=== PATIENT | male | born 2000 | race African-American/Black ===

== ENCOUNTER 2023-04-25 22:28 | Emergency (ER) | payer SELFPAY ==
[2023-04-30 12:42] LABS: C.TRACHOMATIS BY TMA Negative (Negative); M GENITALIUM Negative (Negative); M GENITALIUM SOURCE Urine; N.GONORRHOEAE BY TMA Negative (Negative); SOURCE Urine
== END 2023-04-26 00:01 | disposition home or self-care (01) ==
LOC: DL.ED 22:28
DX: R00.2 Palpitations (principal); K64.8 Other hemorrhoids; D64.9 Anemia, unspecified; Z20.2 Contact with and (suspected) exposure to infections with a predominantly sexual mode of transmission
CPT/HCPCS: 36415; 86592; 87389; 87491; 87563; 87591; 93010; 99284